=== PATIENT | male | born 1975 | race Hispanic/Latino ===

== ENCOUNTER 2018-11-15 14:46 | Emergency (ER) | payer BC ==
[2018-11-15] MEDS ORDERED: ORPHENADRINE CITRATE 30 MG/ML ML ONE (17:02)
[2018-11-15] MEDS ORDERED: KETOROLAC TROMETHAMINE 60 MG/2 ML VIAL ONE (17:02)
== END 2018-11-15 18:04 | disposition home or self-care (01) ==
LOC: EDH 14:46
DX: R07.89 Other chest pain (principal); E11.9 Type 2 diabetes mellitus without complications
CPT/HCPCS: 71101; 82948; 93005; 96372 ×2; 99285; J1885; J2360